=== PATIENT | female | born 1980 ===

== ENCOUNTER 2025-01-14 14:14 | Day surgery (SDC) | payer BC ==
[2025-01-14] VITALS (13 sets, daily range): BP systolic 114–148; BP diastolic 75–107
[~2025-01-14] VITALS: Ht 167.6 cm; Wt 55.6 kg
[~2025-01-14 14:14] MED LIST: ANASPAZ0.125 MG; CYCL10 PO; CeFAZolin Sodium 2,000 MG in NS 100 ML IV SCH; FAMO10 PO; OMEP20ER; ONDA4ODT; PROM25
[2025-01-14] MEDS ORDERED: Midazolam HCl 1MG / ML 2ML Vial ONE (14:20)
[2025-01-14] MEDS ORDERED: FentaNYL Citrate 50 MCG/ML 2 ML Injection ONE ×3 (14:20→17:56)
[2025-01-14] MEDS ORDERED: Ondansetron HCl 2 MG / ML 2ML Vial ONE ×2 (14:23→18:03)
[2025-01-14] MEDS ORDERED: Rocuronium Bromide 10 MG/ML 5ML Injection IV ONE (14:23)
[2025-01-14] MEDS ORDERED: Dexamethasone Sod Phos 10 MG/ML 1ML VIAL ONE (14:23)
[2025-01-14] MEDS ORDERED: MERIBIN5 MG PO (14:32)
[2025-01-14] MEDS ORDERED: MINO2.5 PO (14:32)
[2025-01-14] MEDS ORDERED: Bupivacaine 0.25% Epi 1:200000 30 ML Vial ONE (15:42)
[2025-01-14] MEDS ORDERED: HYDROmorphone HCl/Pf 1MG SYR ONE ×4 (16:40→19:35)
[2025-01-14] MEDS ORDERED: Ketorolac Tromethamine 30mg Vial ONE (16:41)
[2025-01-14] MEDS ORDERED: Glycopyrrolate 0.2 MG/ML 5ML VIAL ONE (16:41)
[2025-01-14] MEDS ORDERED: Ondansetron HCl 2 MG / ML 2ML Vial IV PRN ×2 (16:45→20:15)
[2025-01-14] MEDS ORDERED: Albuterol 2.5 MG/3 ML VIAL INH PRN (16:45)
[2025-01-14] MEDS ORDERED: FentaNYL Citrate 50 MCG/ML 2 ML Injection IV PRN ×2 (16:50)
[2025-01-14] MEDS ORDERED: HYDROmorphone HCl/Pf 1MG SYR IV PRN ×3 (16:50→20:15)
[2025-01-14] MEDS ORDERED: Sugammadex Sodium 200 MG/2ML SDV (100 MG/ML) ONE (17:26)
[2025-01-14] MEDS ORDERED: LORazepam 2 MG/ML 1ML Injection IV ONE (20:00)
[2025-01-14] MEDS ORDERED: Prochlorperazine Edisylate 10 mg Vial IV PRN (20:15)
[2025-01-14] MEDS ORDERED: HYDROcodone 7.5MG-APAP 325MG /15ML UDC PO PRN (20:15)
[2025-01-14] MEDS ORDERED: Simethicone 40 MG/0.6 ML 30ML BTL PT PRN (20:20)
--- NOTE | 2025-01-14 20:45 | NUR ---
TRANSFER TO EXT STAY STATUS PT ARRIVED TO UNIT FROM PACU AT APPROX 2034 TODAY. PT IS A/OX4, TEARFUL AND C/O ABD PAIN. IS ABLE TO AMBULATE TO BATHROOM AND VOID. DIONNE ICE CHIPS. DENIES CHEST/SOB BUT REPORTS SEVERE ABD PAIN WITH DEEP BREATHING. IVF INFUSING PER ORDERS. SPOUSE ATTENTIVE AND HELPFUL AT BEDSIDE. PT ABLE TO MAKE NEEDS KNOWN. ORIENTATION TO ROOM PROVIDED. ABD INCISIONS/DRESSING CDI. 3-4CM SHADOWING NOTED ON PEG TUBE DRESSSING, DRESSING CDI OTHERWISE. FRESH ICE PACK PROVIDED. HR 80'2 WITH SPO02 AT 99% ON RA, CONT BIOX IN PLACE PLAN TO MANAGED PAIN T/O SHIFT PER EMAR. PATIENT AND SPOUSE AGREE TO PLAN. PT HAS CALL LIGHT IN REACH.
--- NOTE | 2025-01-15 | NUR ---
UPDATE PT APPEARS TO BE RESTING IN BED WITH EYES CLOSED AND RESP EVEN/UNLABORED. CONT BIOX IN PLACE WITH SP02 AT 99% RA. SPOUSE A BEDSIDE. HAS CALL LIGHT IN REACH.
--- NOTE | 2025-01-15 02:02 | NUR ---
PUREWICK PUREWICK PLACED BY OFFENSIVE COORDINATOR R/T SEVERE ABD PAIN WITH AMBULATION. PT TOLERATED WELL.
--- NOTE | 2025-01-15 02:38 | NUR ---
UPDATE PT CALLED NURSE C/O OF SEVERE ABD PAIN. 2 PERSON SBA TO BATHROOM, PT ABLE TO VOID. MEDICATED PER EMAR, ALONG WITH HEAT AND REPOSITIONING TO MANAGE PAIN. PT REPORTS RELIEF, APPEARS MORE RELAXED WITH HR BACK BASELINE AND BODY LESS TENSE. SPOUSE ATTENTIVE AT BEDSIDE. IVF INFUSING PER EMAR. HAS CALL LIGHT IN REACH AND ABLE TO MAKE NEEDS KNOWN. DECLINES ADDITIONAL NEEDS AT THIS TIME.
[2025-01-15 05:54] LABS: Hematocrit 38.5 % (33.0-51.0); Hemoglobin 12.6 g/dL (11.5-16.0); Mean Corpuscular HGB Conc 32.7 g/dL (31.5-36.5); Mean Corpuscular Volume 92 fL (80-100); NRBC ABSOLUTE 0.00 K/mm3 (0.00-0.02); NRBC Auto 0.0 /100 WBC (0.0-0.2); Platelet Count 281 K/mm3 (150-400); RDW Coefficient Variation 12.5 % (11.7-14.2); RDW Standard Deviation 42.4 fL (35.1-46.3)
--- NOTE | 2025-01-15 06:06 | NUR ---
SHIFT SUMMARY POD 1 S/P PEG PLACEMENT. PAIN MANAGED PER EMAR, HEAT AND REPOSITIONING. ABD LAP SITES CDI. SHADOWING NOTED AROUND PEG TUB INSERTION. PT IS A/OX4, ABLE TO MAKE NEEDS KNOWN. SPO2 AT 99% ON RA, CONT BIOX IN PLACE. PT REPORTS DIFFICULTY WITH DEEP BREATHS WHEN PAIN IS UNMANAGED. IS VOIDING AND BELCHING. TOLERATING SMALL AMOUNTS OF CHIPS AND SIPS. PEG TUB PATENT. IVF INFUSING PER ORDERS. SBA TO BATHROOM RELATED TO PAIN/WEAKNESS. PT CURRENTLY RESTING IN BED TALKING WITH VISITOR. SPOUSE ATTENTIVE AT BEDSIDE. PT HAS CALL LIGHT IN REACH. WILL GIVE REPORT TO ONCOMING RN.
[2025-01-15 06:19] LABS: Albumin, Blood 3.4 g/dL (3.4-5.0); Anion Gap 9 mmol/L (3-11); Blood Urea Nitrogen 11 mg/dL (8-24); CO2, Blood 22 mmol/L (21-32); Calcium, Blood 8.4 mg/dL (8.5-10.1); Chloride, Blood 108 mmol/L (98-108); Creatinine, Blood 0.74 mg/dL (0.40-1.00); Glucose, Blood 112 mg/dL (70-99); Phosphorus, Blood 3.2 mg/dL (2.5-4.9); Potassium, Blood 3.4 mmol/L (3.5-5.5); Sodium, Blood 136 mmol/L (136-145)
[2025-01-15 08:42] VITALS: BP 99/63
[2025-01-15] MEDS ORDERED: HYDROcodone 7.5MG-APAP 325MG /15ML UDC PO PRN (11:18)
[2025-01-15 14:32] VITALS: BP 95/60
--- NOTE | 2025-01-15 17:49 | NUR ---
SHIFT SUMMARY POD1 LAP G TUBE PLACEMENT PT IS A/OX4, ABLE TO MAKE NEEDS KNOWN. REPORTS MILD NAUSEA, NO VOMITTING, MEDICATED PER EMAR. PT REPORTING SIGNIFICANT PAIN, MEDICATED PER EMAR. PT IS SBA DUE TO PAIN/WEAKNESS. TOLERATING ICE CHIPS AND SIPS OF WATER. LAP SITES C/D/I. SPOUSE IN ROOM ASSISTING W/ ADL'S. GOAL IS TO TOLERATE TUBE FEEDINGS TO MEET NUTRITIONAL NEEDS. CALL LIGHT IN REACH, BED IN LOWEST POSITION.
--- NOTE | 2025-01-15 18:19 | NUR ---
TUBE FEEDS STARTED AT THIS TIME PER ORDERS.
--- NOTE | 2025-01-15 20:34 | NUR ---
MEDICATION NOT SCANNED SCANED HYCET 30ML & THEN COMPUTER , [facility] WILL NOT ALLOW THIS NURSE TO RESCAN OR REDOCUMENT. IT WAS GIVEN APPROX 2002 AND INFORMED CHARGE NURSE TERENCE Obregon & HE IS WITNESS TO THIS NURSE GIVING MED.
[2025-01-15 22:23] VITALS: BP 91/51
--- NOTE | 2025-01-16 00:37 | NUR ---
TRANSFER OF CARE STORM Delgado RN TO ASSUME CARE OF PT. AOX4. S/P PEG TUBE PLACEMENT. PAIN MANAGED WELL W/30ML HYCET VIA TUBE & 1MG IV DILAUDID, PT ABLE TO REST SOUNDLY W/EYES CLOSED. REPORTED MILD NAUSEA 1x & MEDICATED W/COMPAZINE, NO EMESIS OR FURTHER NAUSEA REPORTED. TF RUNNING @20ML/HR. CALL LIGHT IN REACH
[2025-01-16 02:34] VITALS: BP 97/56
[2025-01-16 05:21] LABS: BASOPHILS ABSOLUTE AUTO 0.03 K/mm3 (0.00-0.23); BASOPHILS PERCENT AUTO 0 % (0-2); EOSINOPHILS ABSOLUTE AUTO 0.32 K/mm3 (0.00-0.68); EOSINOPHILS PERCENT AUTO 3 % (0-6); Hematocrit 32.2 % (33.0-51.0); Hemoglobin 10.6 g/dL (11.5-16.0); IMMATURE GRAN ABSOLUTE AUTO 0.03 K/mm3 (0.00-0.10); IMMATURE GRAN PERCENT AUTO 0 % (0-1); LYMPHOCYTES ABSOLUTE AUTO 2.66 K/mm3 (0.84-5.20); LYMPHOCYTES PERCENT AUTO 22 % (21-46); MONOCYTES ABSOLUTE AUTO 0.69 K/mm3 (0.16-1.47); MONOCYTES PERCENT AUTO 6 % (4-13); Mean Corpuscular HGB Conc 32.9 g/dL (31.5-36.5); Mean Corpuscular Volume 90 fL (80-100); NEUTROPHILS ABSOLUTE AUTO 8.26 K/mm3 (1.96-9.15); NEUTROPHILS PERCENT AUTO 69 % (41-73); NRBC ABSOLUTE 0.00 K/mm3 (0.00-0.02); NRBC Auto 0.0 /100 WBC (0.0-0.2); Platelet Count 287 K/mm3 (150-400); RDW Coefficient Variation 12.9 % (11.7-14.2); RDW Standard Deviation 42.7 fL (35.1-46.3)
[2025-01-16 05:48] LABS: Magnesium, Blood 1.8 mg/dL (1.6-2.4)
[2025-01-16 05:49] LABS: Anion Gap 7.0 mmol/L (3-11); Blood Urea Nitrogen 10.0 mg/dL (8-24); CO2, Blood 26.0 mmol/L (21-32); Calcium, Blood 7.8 mg/dL (8.5-10.1); Chloride, Blood 103.0 mmol/L (98-108); Creatinine, Blood 0.9 mg/dL (0.40-1.00); Glucose, Blood 99.0 mg/dL (70-99); Phosphorus, Blood 2.9 mg/dL (2.5-4.9); Potassium, Blood 3.7 mmol/L (3.5-5.5); Sodium, Blood 132.0 mmol/L (136-145)
--- NOTE | 2025-01-16 06:03 | NUR ---
SHIFT SUMMARY NO ACUTE CHANGES THIS SHIFT. ABD INCISIONS CDI. AMB TO BATHROOM WITH INCREASED PAIN. AND SBA. PEG TUB INFUSING PER ORDERS. PAIN MANAGED PER EMAR. DIONNE CL PO INTAKE. REPORTS INCREASED AND NAUSEA WHILE OOB, MANAGED PER EMAR. COOPERATIVE WITH CARE. PT IS A/O X4.. SPOUSE ATTENTIVE AT BED SIDE. HAS CALL LIGHT IN REACH. PLAN TO CONT PAIN MANAGENT AND PEG TUBE INCREAE.
--- NOTE | 2025-01-16 07:34 | NUR ---
UPDATE TUBE FEEDING INCREASED PER ORDERS. PT TOLERATING. DENIES PASSING FLATUS, JUST BELCHING. PAIN INCREASES WITH OOB/AMBULATION.
[2025-01-16 08:24] VITALS: BP 81/48
[2025-01-16 08:25] VITALS: BP 81/48
[2025-01-16] MEDS ORDERED: Diazepam 5 MG / ML 2ML SYR IV PRN (08:45)
[2025-01-16 15:26] VITALS: BP 99/66
--- NOTE | 2025-01-16 16:49 | NUR ---
SHIFT SUMMARY POD 2 G TUBE PLACEMENT PT REMAINS PAINFUL, SHE REPORTS SOME IMPROVEMENT WITH VALIUM DURING SHIFT. UP AND AMBULATING IN THE HALLS AT TIMES. TOLERATING TUBE FEEDS AT 30ML/HR. DENIES NAUSEA SINCE EARLY THIS MORNING. TOLERATING PO INTAKE WELL. CALLS APPROPRIATLY.
--- NOTE | 2025-01-16 20:00 | NUR ---
PT RESTING IN BED WITH EYES CLOSED AND RESP EVEN/UNLABORED. SPOUSE APPEARS TO BE SLEEPING IN ROOM ALSO. HAS CALL LIGHT IN REACH. RESP EVEN/UNLABORED.
[2025-01-16 21:29] VITALS: BP 97/58
--- NOTE | 2025-01-17 07:46 | NUR ---
SHIFT SUMMARY S/P PEG TUBE PLACEMENT. DRESSING AND TUBING CHANGED, PT TOLERATED WELL. PAIN MANAGED PER EMAR, LESS IV DILAUDID REQUIRED COMPARED TO PREVIOUS DAY/NIGHT. UP IN ROOM AND HALLWAYS WITH SPOUSE. DIONNE CL, DENIED N/V. IV PATENT AND SL. IS VOIDING, REPORTS VERY MIN FLATUS. DISCUSSED BOWEL CARE. PT RESTING IN BED WITH EYES CLOSED, RESP EVEN AND CALL LIGHT IN REACH. REPORT GIVEN TO DAY RN.
[2025-01-17 07:52] VITALS: BP 89/52
--- NOTE | 2025-01-17 12:44 | NUR ---
FEED RATE ADJUSTED TO 50ML/HR
[2025-01-17 16:16] VITALS: BP 99/61
--- NOTE | 2025-01-17 16:23 | NUR ---
SHIFT SUMMARY PT IS A/OX4. VSS, ABLE TO MAKE NEEDS KNOWN. PT IS AMBULATING IND, WALKED HALLS MULTIPLE TIMES. MEDICATED PER EMAR, PT UTILIZED BREAK THROUGH PAIN MEDICATION WHEN GOING FOR FURTHER WALKS. DECREASED IV NARCOTIC USE THIS SHIFT. TOLERATING CLEAR LIQUIDS. FEEDING RATE INCREASED TO 50ML/HR. PT IS TOLERATING THE INCREASE. VOIDING WELL, REPORTS PASSING GAS. SURGICAL SITES C/D/I. PLAN FOR DC IN AM. AWAITING HOME TUBE FEED SUPPLIES. CALL LIGHT IN REACH BED IN LOWEST POSITION.
--- NOTE | 2025-01-17 18:05 | NUR ---
NO ACUTE CHANGES SINCE NOTE
[2025-01-17 20:01] VITALS: BP 106/70
[2025-01-18 03:52] VITALS: BP 107/73
--- NOTE | 2025-01-18 06:44 | NUR ---
SHIFT SUMMARY POD 4-PEG TUBE PLACEMENT. LAP SITES & GAUZE AROUND PEG TUBE C/D/I. REPORTS NAUSEA 2X & MEDICATED 2X W/PROMETHAZINE, NO EMESIS-TOLERATING CLEAR LIQUIDS. DENIES PASSING FLATUS. HYPOACTIVE BT. PT REPORTS FEELING BLOATED/PRESSURE 7/10 FOR PAIN, MEDICATED W/5MG PO OXY & 2.5 MG IV VALIUM T/O NIGHT & PT ABLE TO REST SOUNDLY W/EYES CLOSED. UP MULTx TO AMBULATE. VOIDED MULTx. CALL LIGHT IN REACH & PT ABLE TO MAKE NEEDS KNOWN.
[2025-01-18 07:39] VITALS: BP 102/61
[2025-01-18] MEDS ORDERED: PROC5 PO (09:27)
--- NOTE | 2025-01-18 09:52 | NUR ---
DISCHARGE NOTE PT IS A/OX4, VSS. TOLERATING PO INTAKE, EDUCATED ON TUBE FEEDINGS. VOIDING WELL. PT EDUCATED ON STOOL SOFTNERS TO REDUCE RISK OF CONSTIPATION. PT AND SPOUSE VERBALIZED UNDERSTANDING OF TUBE FEEDINGS, PEG TUBE CARE, WOUND CARE. VERABLIZED UNDERSTANDING OF DISCHARGE EDUCATION. PT DC W/ ALL PERSONAL BELONGINGS. ESCORTED OUT VIA AT [phone].
== END 2025-01-18 10:09 | disposition home or self-care (01) ==
LOC: ORSCMMR 14:14 → ORD 14:14 → SURS 20:35 → ORSCMMR 20:35 → ORD 01-18 10:09 → SURS 01-18 10:09 → ORSCMMR 01-18 10:09
PROVIDERS: Surgery
PROC: 8E0W4CZ Robotic Assisted Procedure of Trunk Region, Percutaneous Endoscopic Approach (ICD-10-PCS; principal; 2025-01-14 15:30)
PROC: 0DH63UZ Insertion of Feeding Device into Stomach, Percutaneous Approach (ICD-10-PCS; principal; 2025-01-14 15:30)
DX: K91.89 Other postprocedural complications and disorders of digestive system (principal); Z98.84 Bariatric surgery status; E46 Unspecified protein-calorie malnutrition; Y83.2 Surgical operation with anastomosis, bypass or graft as the cause of abnormal reaction of the patient, or of later complication, without mention of misadventure at the time of the procedure; Z79.899 Other long term (current) drug therapy
CPT/HCPCS: 36415; 74177; 80048; 80069; 82947; 83735; 84100; 85025; 85027; 94762; A9270; C1729; C1894; J0690; J0780; J1100; J1171; J1885; J2060; J2250; J2405; J2704; J3010; J3360; J3411; J7120; Q9967

== ENCOUNTER 2025-03-11 08:51 | Observation (INO) | payer BC ==
[~2025-03-11] VITALS: Ht 167.6 cm; Wt 55.3 kg
[~2025-03-11 08:51] MED LIST changes: -CeFAZolin Sodium 2,000 MG in NS 100 ML IV SCH; +MERIBIN5 MG PO; +MINO2.5 PO; +PROC5 PO
[2025-03-11 09:49] LABS: BASOPHILS ABSOLUTE AUTO 0.06 K/mm3 (0.00-0.23); BASOPHILS PERCENT AUTO 1 % (0-2); EOSINOPHILS ABSOLUTE AUTO 0.25 K/mm3 (0.00-0.68); EOSINOPHILS PERCENT AUTO 3 % (0-6); Hematocrit 38.9 % (33.0-51.0); Hemoglobin 13.0 g/dL (11.5-16.0); IMMATURE GRAN ABSOLUTE AUTO 0.01 K/mm3 (0.00-0.10); IMMATURE GRAN PERCENT AUTO 0 % (0-1); LYMPHOCYTES ABSOLUTE AUTO 2.98 K/mm3 (0.84-5.20); LYMPHOCYTES PERCENT AUTO 34 % (21-46); MONOCYTES ABSOLUTE AUTO 0.51 K/mm3 (0.16-1.47); MONOCYTES PERCENT AUTO 6 % (4-13); Mean Corpuscular HGB Conc 33.4 g/dL (31.5-36.5); Mean Corpuscular Volume 90 fL (80-100); NEUTROPHILS ABSOLUTE AUTO 4.96 K/mm3 (1.96-9.15); NEUTROPHILS PERCENT AUTO 57 % (41-73); NRBC ABSOLUTE 0.00 K/mm3 (0.00-0.02); NRBC Auto 0.0 /100 WBC (0.0-0.2); Platelet Count 432 K/mm3 (150-400); RDW Coefficient Variation 12.4 % (11.7-14.2); RDW Standard Deviation 40.7 fL (35.1-46.3)
[2025-03-11 10:05] LABS: Alanine Aminotransfer (ALT/SGP 26.0 U/L (12-78); Albumin, Blood 4.5 g/dL (3.4-5.0); Albumin/Globulin Ratio 1.2 (0.8-1.8); Anion Gap 7.0 mmol/L (3-11); Aspartate Aminotrans (AST/SGOT 19.0 U/L (12-37); Bilirubin, Total 0.6 mg/dL (0.1-1.0); Blood Urea Nitrogen 11.0 mg/dL (8-24); CO2, Blood 25.0 mmol/L (21-32); Calcium, Blood 9.3 mg/dL (8.5-10.1); Chloride, Blood 109.0 mmol/L (98-108); Creatinine, Blood 0.77 mg/dL (0.40-1.00); Globulin, Blood 3.6 g/dL (2.2-4.0); Glucose, Blood 92.0 mg/dL (70-99); Potassium, Blood 3.6 mmol/L (3.5-5.5); Sodium, Blood 137.0 mmol/L (136-145); Total Protein, Blood 8.1 g/dL (6.4-8.2)
[2025-03-11] MEDS ORDERED: NS 1,000 ML IV ONE (10:30)
[2025-03-11] MEDS ORDERED: FentaNYL Citrate 50 MCG/ML 2 ML Injection ONE ×2 (10:30→11:05)
[2025-03-11] MEDS ORDERED: Midazolam HCl 1MG / ML 2ML Vial ONE ×2 (10:30→11:05)
[2025-03-11] MEDS ORDERED: CeFAZolin Sodium 1000 mg Vial ONE (10:44)
[2025-03-11] MEDS ORDERED: NS 100 ML IV ONE (10:44)
[2025-03-11] MEDS ORDERED: Lidocaine 2% Jelly Uro-Jet ONE (11:05)
[2025-03-11 11:45] VITALS: BP 136/111
[2025-03-11 11:47] VITALS: BP 126/98
[2025-03-11 12:00] VITALS: BP 128/94
--- NOTE | 2025-03-11 12:08 | NUR ---
PT ALERT, TALKING AND SITTING UP. DRESSED SELF. DISCHARGE REVIEWED WITH PT, VERBALIZES UNDERSTANDING OF INSTRUCTIONS. PT DISCHARGED.
[2025-03-25] MEDS ORDERED: VITAMIN D5000 UNIT PO (13:18)
[2025-03-25] MEDS ORDERED: ONDA4 PO (13:19)
[2025-03-25] MEDS ORDERED: HYOS.125 PO (13:19)
[2025-03-25] MEDS ORDERED: PROM25 PO (13:20)
== END 2025-03-11 12:10 | disposition home or self-care (01) ==
LOC: ER 08:51 → SURS 08:52
PROVIDERS: Physician Assistant; ADMIT Internal Medicine
DX: K94.23 Gastrostomy malfunction (principal)
CPT/HCPCS: 49450; 80053; 85025; 99152; 99153; 99284; C1769; C1887; J0690; J2250; J3010; J7030; Q9967

== ENCOUNTER 2025-03-26 07:31 | Day surgery (SDC) | payer BC ==
[~2025-03-26] VITALS: Ht 167.6 cm; Wt 54.4 kg
[~2025-03-26 07:31] MED LIST changes: +HYOS.125 PO; +ONDA4 PO; +PROM25 PO; +VITAMIN D5000 UNIT PO
[2025-03-26 07:48] VITALS: BP 114/89
[2025-03-26 07:55] VITALS: BP 114/89
[2025-03-26 08:43] LABS: Hematocrit 36.7 % (33.0-51.0); Hemoglobin 12.2 g/dL (11.5-16.0); Mean Corpuscular HGB Conc 33.2 g/dL (31.5-36.5); Mean Corpuscular Volume 90 fL (80-100); NRBC ABSOLUTE 0.00 K/mm3 (0.00-0.02); NRBC Auto 0.0 /100 WBC (0.0-0.2); Platelet Count 349 K/mm3 (150-400); RDW Coefficient Variation 12.0 % (11.7-14.2); RDW Standard Deviation 39.6 fL (35.1-46.3)
[2025-03-26 08:57] LABS: Anion Gap 8.0 mmol/L (3-11); Blood Urea Nitrogen 14.0 mg/dL (8-24); CO2, Blood 26.0 mmol/L (21-32); Calcium, Blood 9.1 mg/dL (8.5-10.1); Chloride, Blood 106.0 mmol/L (98-108); Creatinine, Blood 0.92 mg/dL (0.40-1.00); Glucose, Blood 94.0 mg/dL (70-99); Potassium, Blood 3.8 mmol/L (3.5-5.5); Sodium, Blood 136.0 mmol/L (136-145)
[2025-03-26 09:04] LABS: BASOPHILS ABSOLUTE MAN 0.00 K/mm3 (0.00-0.23); BASOPHILS PERCENT MAN 0 % (0-2); EOSINOPHILS ABSOLUTE MAN 0.26 K/mm3 (0.00-0.68); EOSINOPHILS PERCENT MAN 4 % (0-6); LYMPHOCYTES ABSOLUTE MAN 2.77 K/mm3 (0.84-5.20); LYMPHOCYTES PERCENT MAN 42 % (21-46); MONOCYTES ABSOLUTE MAN 0.26 K/mm3 (0.16-1.47); MONOCYTES PERCENT MAN 4 % (4-13); NEUTROPHILS ABSOLUTE MAN 3.30 K/mm3 (1.96-9.15); SEG NEUTROPHILS PERCENT MAN 50 % (41-73)
[2025-03-26] MEDS ORDERED: NS 500 ML IV ONE (10:03)
[2025-03-26] MEDS ORDERED: FentaNYL Citrate 50 MCG/ML 2 ML Injection ONE (10:06)
[2025-03-26] MEDS ORDERED: Midazolam HCl 1MG / ML 2ML Vial ONE ×2 (10:06→10:20)
[2025-03-26 10:49] VITALS: BP 104/85
[2025-03-26 11:00] VITALS: BP 113/94
[2025-03-26 11:15] VITALS: BP 123/86
[2025-03-26 11:30] VITALS: BP 119/87
--- NOTE | 2025-03-26 11:40 | NUR ---
PT GETTING DRESSED AT THIS TIME. SALINE LOCK REMOVED WITH CATHETER INTACT. VS WNL. PT GIVEN DISCHARGE INSTRUCTIONS, VERBALIZES UNDERSTANDING. PT STATES SHE IS GOING TO RETURN TO WORK FOR A COUPLE OF HOURS THEN HER WILL COME AND PICK HER UP.
== END 2025-03-26 11:42 | disposition home or self-care (01) ==
LOC: MHTC 07:31
PROVIDERS: Student in an Organized Health Care Education/Training Program
DX: Z43.1 Encounter for attention to gastrostomy (principal); R63.4 Abnormal weight loss; Z68.1 Body mass index [BMI] 19.9 or less, adult; Z90.49 Acquired absence of other specified parts of digestive tract
CPT/HCPCS: 49446; 80048; 85007; 85027; 99152; 99153; C1769; C1887; J2250; J3010; J7040; Q9967

== ENCOUNTER 2025-04-08 14:37 | Day surgery (SDC) | payer BC ==
[~2025-04-08] VITALS: Ht 167.6 cm; Wt 53.0 kg
[~2025-04-08 14:37] MED LIST changes: +Glycopyrrolate 0.2 MG/ML 1MLVIAL ONE; +Ondansetron HCl 2 MG / ML 2ML Vial ONE; +ePHEDrine Sulfate 50 MG/ML 1ML Injection ONE
[2025-04-08] MEDS ORDERED: Midazolam HCL 1 MG/ML 5MLVIAL ONE (16:26)
[2025-04-09] MEDS ORDERED: OMEP20ER PO (10:26)
== END 2025-04-08 17:50 | disposition home or self-care (01) ==
LOC: ORSCSDS 14:37
PROVIDERS: Internal Medicine Gastroenterology
PROC: 0D768ZZ Dilation of Stomach, Via Natural or Artificial Opening Endoscopic (ICD-10-PCS; principal; 2025-04-08 15:45)
PROC: 0D7A8ZZ Dilation of Jejunum, Via Natural or Artificial Opening Endoscopic (ICD-10-PCS; principal; 2025-04-08 15:45)
DX: K91.89 Other postprocedural complications and disorders of digestive system (principal); R11.2 Nausea with vomiting, unspecified; K94.23 Gastrostomy malfunction; K28.7 Chronic gastrojejunal ulcer without hemorrhage or perforation; Z98.84 Bariatric surgery status; Z98.0 Intestinal bypass and anastomosis status; K31.84 Gastroparesis; J45.909 Unspecified asthma, uncomplicated; Z86.16 Personal history of COVID-19; E87.6 Hypokalemia; Z79.899 Other long term (current) drug therapy
CPT/HCPCS: C1726; J2003; J2250; J2405; J2704; J7120

== ENCOUNTER 2025-04-09 09:40 | Day surgery (SDC) | payer BC ==
[~2025-04-09] VITALS: Ht 167.6 cm; Wt 53.0 kg
[~2025-04-09 09:40] MED LIST changes: -Glycopyrrolate 0.2 MG/ML 1MLVIAL ONE; -Ondansetron HCl 2 MG / ML 2ML Vial ONE; -ePHEDrine Sulfate 50 MG/ML 1ML Injection ONE
[2025-04-09 10:26] VITALS: BP 113/90
[2025-04-09] MEDS ORDERED: OMEP20ER PO (10:26)
[2025-04-09] MEDS ORDERED: Midazolam HCl 1MG / ML 2ML Vial ONE (11:00)
[2025-04-09] MEDS ORDERED: FentaNYL Citrate 50 MCG/ML 2 ML Injection ONE (11:00)
[2025-04-09] MEDS ORDERED: NS 1,000 ML IV ONE (11:01)
[2025-04-09] MEDS ORDERED: Lidocaine 2% Jelly Uro-Jet ONE (11:52)
[2025-04-09] MEDS ORDERED: Ondansetron HCl 2 MG / ML 2ML Vial ONE (12:15)
[2025-04-09 12:33] VITALS: BP 131/97
== END 2025-04-09 12:45 | disposition home or self-care (01) ==
LOC: MHTC 09:40
DX: Z43.1 Encounter for attention to gastrostomy (principal); R63.4 Abnormal weight loss; Z68.1 Body mass index [BMI] 19.9 or less, adult; Z79.899 Other long term (current) drug therapy; Z98.84 Bariatric surgery status
CPT/HCPCS: J2250; J2405; J3010; J7030; Q9967